=== PATIENT | male | born 1985 | race Caucasian/White ===

== ENCOUNTER → 2016-12-03 | Outpatient (CLI) | payer OTHER ==
[~2016-12-03] MED LIST: CATAFLAM50 MG PO; DOXYCYCLINE100 M2 PO; DUONEB 3 MG/3 ML3 M1 INH; FLEXERIL10 MG PO; KEFLEX500 MG PO; LEXAPRO10 MG PO; MEDROL DOSEPAK4 MG PO; MOTRIN800 MG PO; NKHM; PERCOCET 325 MG1 TA2 PO; PREDNICOT20 MG PO; PREDNISONE10 MG PO; ROBITUSSIN AC 110 ML PO; ROBITUSSIN DM120 ML PO; VIBRAMYCIN100 MG PO; ZITHROMAX Z PA250 MG PO; [UNRECOGNIZED DRUG - REMARK] PO
== END | disposition home or self-care (01) ==
LOC: RESCLI 04:57
DX: Z00.01 Encounter for general adult medical examination with abnormal findings (principal); M54.5 Low back pain; Z88.0 Allergy status to penicillin

== ENCOUNTER → 2017-03-25 | Outpatient (CLI) | payer OTHER ==
[2017-03-25 15:02] LABS: BASO # 0.1 10*3/uL (0.0-0.1); BASO % 0.7 % (0.0-1.0); EOS # 0.4 10*3/uL (0.0-0.4); EOS % 4.5 % (1.0-4.0); HEMATOCRIT 44.7 % (42.0-52.0); HEMOGLOBIN 15.1 g/dl (14.0-18.0); LYMPH % 24.5 % (27.0-41.0); MEAN CELL VOLUME 92.9 fl (80.0-94.0); MEAN CORPUSCULAR HGB 31.4 pg (27.0-31.0); MEAN CORPUSCULAR HGB CONC 33.8 g/dl (33.0-37.0); MEAN PLATELET VOLUME 9.7 fl (9.6-12.3); MONO # 0.8 10*3/uL (0.1-1.0); MONO % 9.1 % (3.0-9.0); NEUT % 60.8 % (47.0-73.0); PLATELET COUNT AUTOMATED 257 10*3/uL (130-400); RED BLOOD COUNT 4.81 10*6/uL (4.50-5.90); RED CELL DISTRI WIDTH 12.5 % (0-14.5); WHITE BLOOD COUNT 8.3 10*3/uL (4.8-10.8)
[2017-03-25 15:29] LABS: ALBUMIN 4.1 gm/dl (3.1-4.5); ALKALINE PHOSPHATASE 104 U/L (45-117); BUN 14 mg/dl (7-24); CHLORIDE 101 mmol/L (98-107); CREATININE 0.87 mg/dL (0.70-1.30); POTASSIUM 4.6 mmol/L (3.5-5.1); SGOT/AST 21 IU/L (3-35); SGPT/ALT 44 U/L (12-78); SODIUM 137 mmol/L (136-145); TOTAL PROTEIN 7.8 gm/dL (6.4-8.2)
== END | disposition home or self-care (01) ==
LOC: LAB 04:34 → RESCLI 04:34
PROVIDERS: Internal Medicine
DX: J02.9 Acute pharyngitis, unspecified (principal)

== ENCOUNTER → 2017-06-02 | Outpatient (CLI) | payer OTHER | END | disposition home or self-care (01) | LOC: RESCLI 00:41 | DX: J40 Bronchitis, not specified as acute or chronic (principal); J01.00 Acute maxillary sinusitis, unspecified; J02.9 Acute pharyngitis, unspecified; F41.9 Anxiety disorder, unspecified; Z72.0 Tobacco use; Z71.6 Tobacco abuse counseling ==

== ENCOUNTER → 2017-06-18 | Outpatient (CLI) | payer OTHER | END | disposition home or self-care (01) | LOC: RESCLI 08:54 | DX: J45.909 Unspecified asthma, uncomplicated (principal); M72.2 Plantar fascial fibromatosis; F17.210 Nicotine dependence, cigarettes, uncomplicated; Z71.6 Tobacco abuse counseling ==

== ENCOUNTER → 2017-07-08 | Outpatient (CLI) | payer OTHER | LOC: RESCLI 11:46 | DX: J32.1 Chronic frontal sinusitis (principal); H11.32 Conjunctival hemorrhage, left eye; E66.01 Morbid (severe) obesity due to excess calories; F41.9 Anxiety disorder, unspecified; F17.210 Nicotine dependence, cigarettes, uncomplicated ==

== ENCOUNTER 2017-07-23 18:32 | Emergency (ER) | payer OTHER ==
[~2017-07-23] VITALS: Ht 185.4 cm; Wt 124.7 kg
[2017-07-23] MEDS ORDERED: NEURONTIN300 MG PO (20:20)
[2017-07-23] MEDS ORDERED: ACYCLOVIR800 MG PO (20:20)
== END 2017-07-23 22:03 | disposition home or self-care (01) ==
LOC: ED 18:32
DX: B02.9 Zoster without complications (principal); Z88.0 Allergy status to penicillin

== ENCOUNTER → 2017-09-02 | Outpatient (CLI) | payer OTHER ==
[~2017-09-02] MED LIST changes: +ACYCLOVIR800 MG PO; +NEURONTIN300 MG PO
== END ==
LOC: RESCLI 03:30
DX: Z00.00 Encounter for general adult medical examination without abnormal findings (principal); M54.40 Lumbago with sciatica, unspecified side; F10.10 Alcohol abuse, uncomplicated; G25.81 Restless legs syndrome; G47.00 Insomnia, unspecified; E66.9 Obesity, unspecified; F41.9 Anxiety disorder, unspecified; F17.210 Nicotine dependence, cigarettes, uncomplicated; Z88.0 Allergy status to penicillin; Z71.6 Tobacco abuse counseling

== ENCOUNTER → 2017-09-04 | Outpatient (CLI) | payer OTHER ==
[2017-09-04 14:50] LABS: BILIRUBIN NEGATIVE (NEGATIVE); BLOOD NEGATIVE (NEGATIVE); CLARITY CLEAR (CLEAR); COLOR YELLOW (YELLOW); GLUCOSE NEGATIVE (NEGATIVE); KETONE NEGATIVE (NEGATIVE); LEUKO ESTERASE NEGATIVE (NEGATIVE); NITRITE NEGATIVE (NEGATIVE); SPECIFIC GRAVITY >= 1.030 (1.005-1.030); UROBILINOGEN 0.2 E.U./dl (0.2-1.0)
[2017-09-04 14:51] LABS: BASO # 0.1 10*3/uL (0.0-0.1); BASO % 0.8 % (0.0-1.0); EOS # 0.3 10*3/uL (0.0-0.4); EOS % 4.6 % (1.0-4.0); HEMATOCRIT 44.6 % (42.0-52.0); HEMOGLOBIN 14.7 g/dl (14.0-18.0); LYMPH # 2.2 10*3/uL (1.3-4.4); LYMPH % 34.1 % (27.0-41.0); MEAN CELL VOLUME 94.1 fl (80.0-94.0); MEAN PLATELET VOLUME 9.6 fl (9.6-12.3); MONO # 0.5 10*3/uL (0.1-1.0); MONO % 8.5 % (3.0-9.0); NEUT # 3.3 10*3/uL (2.3-7.9); NEUT % 51.5 % (47.0-73.0); PLATELET COUNT AUTOMATED 253 10*3/uL (130-400); RED BLOOD COUNT 4.74 10*6/uL (4.50-5.90); RED CELL DISTRI WIDTH 13.2 % (0-14.5); WHITE BLOOD COUNT 6.4 10*3/uL (4.8-10.8)
[2017-09-04 14:58] LABS: BACTERIA 1+; EPITHELIAL CELLS 0-2; MUCOUS TRACE; RBC 0-2 rbc/hpf (0-2); WBC 0-2 wbc/hpf (0-5)
[2017-09-04 15:22] LABS: ALBUMIN 4.4 gm/dl (3.1-4.5); ALKALINE PHOSPHATASE 91 U/L (45-117); BUN 12 mg/dl (7-24); CHLORIDE 106 mmol/L (98-107); CHOLESTEROL 156 mg/dL (<200); CREATININE 0.99 mg/dL (0.70-1.30); HDL CHOLESTEROL 51 mg/dl (40-60); LDL CHOLESTEROL 93 mg/dL (9-159); POTASSIUM 4.4 mmol/L (3.5-5.1); SGOT/AST 20 IU/L (3-35); SGPT/ALT 31 U/L (12-78); SODIUM 140 mmol/L (136-145); TOTAL PROTEIN 7.7 gm/dL (6.4-8.2); TRIGLYCERIDES 60 mg/dl (<150); VLDL CHOLESTEROL 12 mg/dL (6-40)
== END ==
LOC: LAB 01:30
PROVIDERS: Internal Medicine
DX: Z00.01 Encounter for general adult medical examination with abnormal findings (principal); F41.9 Anxiety disorder, unspecified; I10 Essential (primary) hypertension

== ENCOUNTER → 2017-09-19 | Outpatient (CLI) | payer OTHER | END | disposition home or self-care (01) | LOC: RESCLI 09-09 03:50 | DX: R53.82 Chronic fatigue, unspecified (principal); G47.00 Insomnia, unspecified; M54.40 Lumbago with sciatica, unspecified side; F17.210 Nicotine dependence, cigarettes, uncomplicated; G25.81 Restless legs syndrome; E66.9 Obesity, unspecified; R73.03 Prediabetes; F10.10 Alcohol abuse, uncomplicated; Z79.899 Other long term (current) drug therapy; Z71.6 Tobacco abuse counseling; Z88.0 Allergy status to penicillin ==

== ENCOUNTER 2017-10-06 14:16 | Emergency (ER) | payer OTHER ==
[~2017-10-06] VITALS: Ht 185.4 cm; Wt 124.7 kg
[2017-10-06 14:44] LABS: BASO # 0.1 10*3/uL (0.0-0.1); BASO % 0.8 % (0.0-1.0); EOS # 0.3 10*3/uL (0.0-0.4); EOS % 3.3 % (1.0-4.0); HEMATOCRIT 41.5 % (42.0-52.0); HEMOGLOBIN 13.9 g/dl (14.0-18.0); LYMPH # 2.2 10*3/uL (1.3-4.4); LYMPH % 28.5 % (27.0-41.0); MEAN CELL VOLUME 92.2 fl (80.0-94.0); MEAN CORPUSCULAR HGB 30.9 pg (27.0-31.0); MEAN CORPUSCULAR HGB CONC 33.5 g/dl (33.0-37.0); MEAN PLATELET VOLUME 9.5 fl (9.6-12.3); MONO # 0.7 10*3/uL (0.1-1.0); NEUT # 4.5 10*3/uL (2.3-7.9); NEUT % 58.1 % (47.0-73.0); PLATELET COUNT AUTOMATED 253 10*3/uL (130-400); WHITE BLOOD COUNT 7.8 10*3/uL (4.8-10.8)
[2017-10-06 15:00] LABS: ALKALINE PHOSPHATASE 91 U/L (45-117); BUN 18 mg/dl (7-24); CHLORIDE 105 mmol/L (98-107); CREATININE 0.99 mg/dL (0.70-1.30); LIPASE 69 U/L (73-393); POTASSIUM 4.1 mmol/L (3.5-5.1); SGOT/AST 15 IU/L (3-35); SGPT/ALT 39 U/L (12-78); SODIUM 138 mmol/L (136-145); TOTAL PROTEIN 7.4 gm/dL (6.4-8.2)
[2017-10-06 15:27] LABS: BILIRUBIN NEGATIVE (NEGATIVE); BLOOD NEGATIVE (NEGATIVE); CLARITY SL CLOUDY (CLEAR); COLOR YELLOW (YELLOW); GLUCOSE NEGATIVE (NEGATIVE); KETONE NEGATIVE (NEGATIVE); LEUKO ESTERASE NEGATIVE (NEGATIVE); NITRITE NEGATIVE (NEGATIVE); PH 7.5 (5.0-9.0); UROBILINOGEN 0.2 E.U./dl (0.2-1.0)
[2017-10-06 16:01] LABS: BACTERIA TRACE; WBC 0-2 wbc/hpf (0-5)
== END 2017-10-06 16:40 | disposition home or self-care (01) ==
LOC: ED 14:16
PROVIDERS: Emergency Medicine
DX: R10.9 Unspecified abdominal pain (principal); E66.9 Obesity, unspecified; F17.200 Nicotine dependence, unspecified, uncomplicated; G89.29 Other chronic pain; Z79.899 Other long term (current) drug therapy; Z88.0 Allergy status to penicillin

== ENCOUNTER 2017-12-02 20:52 | Emergency (ER) | payer OTHER ==
[~2017-12-02] VITALS: Ht 185.4 cm; Wt 124.7 kg
[2017-12-02] MEDS ORDERED: IBUPROFEN600 MG PO ×2 (20:54→22:05)
[2017-12-02] MEDS ORDERED: VIBRAMYCIN100 MG PO (22:05)
== END 2017-12-02 22:42 | disposition home or self-care (01) ==
LOC: ED 20:52
DX: S61.031A Puncture wound without foreign body of right thumb without damage to nail, initial encounter (principal); S60.811A Abrasion of right wrist, initial encounter; F17.200 Nicotine dependence, unspecified, uncomplicated; Z88.0 Allergy status to penicillin; W54.0XXA Bitten by dog, initial encounter; Y93.89 Activity, other specified; Y92.89 Other specified places as the place of occurrence of the external cause; Y99.8 Other external cause status

== ENCOUNTER 2018-03-17 20:46 | Emergency (ER) | payer OTHER ==
[~2018-03-17] VITALS: Ht 185.4 cm; Wt 127.0 kg
--- NOTE | ~2018-03-17 | EKG ---
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
[~2018-03-17 20:46] MED LIST changes: +IBUPROFEN600 MG PO
== END 2018-03-17 22:45 | disposition home or self-care (01) ==
LOC: ED 20:46
DX: B34.9 Viral infection, unspecified (principal); Z88.0 Allergy status to penicillin

== ENCOUNTER 2018-12-09 10:33 | Emergency (ER) | payer OTHER ==
[~2018-12-09] VITALS: Ht 185.4 cm; Wt 133.8 kg
[2018-12-09] MEDS ORDERED: ZITHROMAX250 MG PO (12:30)
[2018-12-09] MEDS ORDERED: PREDNISONE50 MG PO (12:30)
== END 2018-12-09 12:37 | disposition home or self-care (01) ==
LOC: ED 10:33
DX: J20.9 Acute bronchitis, unspecified (principal); R09.1 Pleurisy; F17.200 Nicotine dependence, unspecified, uncomplicated; Z88.0 Allergy status to penicillin

== ENCOUNTER 2018-12-16 08:16 | Emergency (ER) | payer OTHER ==
[~2018-12-16] VITALS: Wt 133.8 kg
[~2018-12-16 08:16] MED LIST changes: +PREDNISONE50 MG PO; +ZITHROMAX250 MG PO
[2018-12-16] MEDS ORDERED: SEPTDS PO (08:41)
[2018-12-16] MEDS ORDERED: Bactroban Oint22 GM T (08:42)
[2018-12-16] MEDS ORDERED: Motrin,Rufen800 MG PO (09:52)
== END 2018-12-16 10:08 | disposition home or self-care (01) ==
LOC: ED 08:16
DX: S39.012A Strain of muscle, fascia and tendon of lower back, initial encounter (principal); F17.200 Nicotine dependence, unspecified, uncomplicated; Z88.0 Allergy status to penicillin; X50.1XXA Overexertion from prolonged static or awkward postures, initial encounter; Y93.89 Activity, other specified; Y92.098 Other place in other non-institutional residence as the place of occurrence of the external cause; Y99.8 Other external cause status

== ENCOUNTER 2019-12-28 11:55 | Emergency (ER) | payer OTHER ==
[~2019-12-28] VITALS: Wt 117.9 kg
[~2019-12-28 11:55] MED LIST changes: +Bactroban Oint22 GM T; +Motrin,Rufen800 MG PO; +SEPTDS PO
[2019-12-28 12:32] LABS: BASO # 0.1 10*3/uL (0.0-0.1); BASO % 0.8 % (0.0-1.0); EOS # 0.3 10*3/uL (0.0-0.4); EOS % 4.5 % (1.0-4.0); HEMATOCRIT 44.4 % (42.0-52.0); MEAN CELL VOLUME 93.7 fl (80.0-94.0); MEAN CORPUSCULAR HGB CONC 33.1 g/dl (33.0-37.0); MEAN PLATELET VOLUME 9.6 fl (9.6-12.3); MONO # 0.6 10*3/uL (0.1-1.0); MONO % 9.3 % (3.0-9.0); NEUT # 3.1 10*3/uL (2.3-7.9); NEUT % 51.1 % (47.0-73.0); PLATELET COUNT AUTOMATED 273 10*3/uL (130-400); RED BLOOD COUNT 4.74 10*6/uL (4.50-5.90); RED CELL DISTRI WIDTH 12.3 % (0-14.5)
[2019-12-28 12:47] LABS: ALBUMIN 3.8 gm/dl (3.1-4.5); ALKALINE PHOSPHATASE 94 U/L (45-117); BUN 18 mg/dl (7-24); CHLORIDE 108 mmol/L (98-107); CREATININE 1.01 mg/dL (0.70-1.30); POTASSIUM 4.3 mmol/L (3.5-5.1); SGOT/AST 18 IU/L (3-35); SGPT/ALT 30 U/L (12-78); SODIUM 140 mmol/L (136-145); TOTAL PROTEIN 7.6 gm/dL (6.4-8.2)
[2019-12-28] MEDS ORDERED: GOOD NEIGHBOR M25 M1 PO (14:24)
== END 2019-12-28 14:29 | disposition home or self-care (01) ==
LOC: ED 11:55
PROVIDERS: Emergency Medicine
DX: H83.09 Labyrinthitis, unspecified ear (principal); R42 Dizziness and giddiness; M19.90 Unspecified osteoarthritis, unspecified site; F17.200 Nicotine dependence, unspecified, uncomplicated; Z88.0 Allergy status to penicillin; Z79.899 Other long term (current) drug therapy

== ENCOUNTER → 2021-03-12 | Outpatient (CLI) | payer OTHER ==
[~2021-03-12] MED LIST changes: +GOOD NEIGHBOR M25 M1 PO
== END | disposition home or self-care (01) ==
LOC: COVID19 15:10
PROVIDERS: ATTEND Student in an Organized Health Care Education/Training Program
DX: U07.1 COVID-19 (principal)

== ENCOUNTER 2023-12-13 18:52 | Emergency (ER) | payer OTHER ==
[~2023-12-13] VITALS: Ht 185.4 cm; Wt 123.4 kg
[2023-12-13] MEDS ORDERED: Acetaminophen/Oxycodone 5 MG/325 MG TABLET PO ONE (19:25)
[2023-12-13] MEDS ORDERED: TRAMADOL HCL50 MG PO (22:11)
== END 2023-12-13 22:27 | disposition home or self-care (01) ==
LOC: ED 18:52
DX: S92.534A Nondisplaced fracture of distal phalanx of right lesser toe(s), initial encounter for closed fracture (principal); Z88.0 Allergy status to penicillin; W22.8XXA Striking against or struck by other objects, initial encounter; Y93.89 Activity, other specified; Y92.89 Other specified places as the place of occurrence of the external cause; Y99.8 Other external cause status

== ENCOUNTER 2024-06-26 19:55 | Emergency (ER) | payer OTHER ==
[~2024-06-26] VITALS: Ht 185.4 cm; Wt 136.1 kg
[~2024-06-26 19:55] MED LIST changes: +TRAMADOL HCL50 MG PO
[2024-06-26] MEDS ORDERED: SODIUM CHLORIDE 0.9% 1,000 ML IV ONE (20:25)
[2024-06-26] MEDS ORDERED: diphenhydrAMINE hydrochloride 50 MG/ML VIAL IV ONE (20:25)
[2024-06-26 20:53] LABS: BASO # 0.1 10*3/uL (0.0-0.1); BASO % 0.5 % (0.0-1.0); EOS # 0.2 10*3/uL (0.0-0.4); EOS % 2.4 % (1.0-4.0); HEMATOCRIT 44.5 % (42.0-52.0); MEAN CELL VOLUME 90.8 fl (80.0-94.0); MEAN CORPUSCULAR HGB 30.2 pg (27.0-31.0); MEAN CORPUSCULAR HGB CONC 33.3 g/dl (33.0-37.0); MONO # 0.5 10*3/uL (0.1-1.0); MONO % 5.9 % (3.0-9.0); NEUT % 54.5 % (47.0-73.0); PLATELET COUNT AUTOMATED 305 10*3/uL (130-400); RED CELL DISTRI WIDTH 12.7 % (0-14.5); WHITE BLOOD COUNT 9.2 10*3/uL (4.8-10.8)
[2024-06-26 21:12] LABS: ALKALINE PHOSPHATASE 96 U/L (46-116); BUN 16 mg/dl (9-23); CHLORIDE 100 mmol/L (98-107); POTASSIUM 3.6 mmol/L (3.4-5.1); SGPT/ALT 48 U/L (5-49)
[2024-06-26 22:35] LABS: BILIRUBIN Negative (Negative); BLOOD Negative (Negative); CLARITY Cloudy (Clear); COLOR Yellow (Yellow); GLUCOSE Negative (Negative); KETONE Trace (Negative); LEUKO ESTERASE Negative (Negative); NITRITE Negative (Negative); PH 5.5 (4.5-8.0); UROBILINOGEN 0.2 E.U./dl (0.0-1.0)
[2024-06-26 22:46] LABS: MUCOUS 1+; RBC 0-2 rbc/hpf (0-2)
[2024-06-26] MEDS ORDERED: HYDROXYZINE HCL25 MG PO (22:56)
== END 2024-06-26 23:13 | disposition home or self-care (01) ==
LOC: ED 19:55
PROVIDERS: Nurse Practitioner Family
DX: R23.2 Flushing (principal); T38.0X5A Adverse effect of glucocorticoids and synthetic analogues, initial encounter; R09.89 Other specified symptoms and signs involving the circulatory and respiratory systems; R39.11 Hesitancy of micturition; Z88.0 Allergy status to penicillin; Z79.899 Other long term (current) drug therapy; Y92.89 Other specified places as the place of occurrence of the external cause

== ENCOUNTER 2024-07-17 22:42 | Emergency (ER) | payer OTHER ==
[~2024-07-17] VITALS: Ht 185.4 cm; Wt 130.6 kg
[~2024-07-17 22:42] MED LIST changes: +HYDROXYZINE HCL25 MG PO
== END 2024-07-17 23:16 | disposition home or self-care (01) ==
LOC: ED 22:42
DX: J02.9 Acute pharyngitis, unspecified (principal); Z88.0 Allergy status to penicillin; Z88.8 Allergy status to other drugs, medicaments and biological substances; Z79.899 Other long term (current) drug therapy

== ENCOUNTER → 2024-09-17 | Outpatient (CLI) | payer OTHER | END | disposition home or self-care (01) | LOC: RAD 08:32 | PROVIDERS: ATTEND Nurse Practitioner Primary Care | DX: M47.816 Spondylosis without myelopathy or radiculopathy, lumbar region (principal); M54.9 Dorsalgia, unspecified; M25.561 Pain in right knee; G89.29 Other chronic pain ==

== ENCOUNTER 2025-01-30 18:40 | Emergency (ER) | payer OTHER ==
[~2025-01-30] VITALS: Ht 185.4 cm; Wt 133.8 kg
[2025-01-30] MEDS ORDERED: METHOCARBAMOL 750 MG TAB PO ONE (20:10)
[2025-01-30] MEDS ORDERED: METHOCARBAMOL750 M1 PO (20:16)
[2025-01-30] MEDS ORDERED: NAPROSYN500 MG PO (20:16)
== END 2025-01-30 20:19 | disposition home or self-care (01) ==
LOC: ED 18:40
DX: M54.2 Cervicalgia (principal); R20.0 Anesthesia of skin; M19.90 Unspecified osteoarthritis, unspecified site; Z88.0 Allergy status to penicillin; Z88.8 Allergy status to other drugs, medicaments and biological substances